=== PATIENT | female | born 1990 | race Hispanic/Latino ===

== ENCOUNTER 2016-07-30 16:12 | Emergency (ER) | payer OTHER ==
[~2016-07-30] VITALS: Ht 167.6 cm; Wt 90.7 kg
--- NOTE | 2016-07-30 16:23 | ED PSYCHIATRIC COMPLAINT ---
History of Present Illness General Chief Complaint: ETOH/Drug Related Complaint Stated Complaint: BIBA ?OVERDOSE Source: patient, EMS Exam Limitations: no limitations Vital Signs & Intake/Output Vital Signs & Intake/Output Vital Signs Date Time Temp Pulse Resp B/P Pulse O2 O2 Flow FiO2 Ox Delivery Rate 07/30 1923 97.8 95 18 115/70 96 Room Air 07/30 1621 96 07/30 1619 96.5 84 16 133/87 97 Room Air ED Intake and Output 07/31 0000 07/30 1200 Intake Total 0 Output Total Balance 0 Intake, Oral 0 Patient 200 lb Weight Allergies Coded Allergies: walnut (ANAPHYLAXIS 07/30/16) Reconcile Medications Esomeprazole (Nexium) 40 MG CAPSULE. 1 CAP PO DAILY GI (Reported) Triage Note: PT BIBA FROM HOME AFTER BEING UNRESPONSIVE. PT STATES SHE SNORTED COCAIN THAT IS THE LAST THING SHE REMEMBERS. PT WAS GIVEN .2 NARCAN INTRA NASAL BY EMS. PT WAS ALSO GIVEN ADDITIONAL .2 IV BY MEDIC. PT STATES SHE DOES NOT USE HEROIN. PT STATES SHE SMOKE POT AND ONCE IN A WHILE SNORTS COCAINE. PT WOKE ONCE NARCAN WAS GIVEN Triage Nurses Notes Reviewed? yes Onset: Abrupt Duration: better Timing: single episode today Severity: severe Severity Numbers: 10 : No Patient currently breastfeeds: No HPI: Patient is a 25-year-old female with a past medical history of GERD who presents emergency room brought in by ambulance for concerns of opiate overdose, it was noted to be in by EMS that they received a call for a unresponsive 25-year-old female in which on arrival patient was noted to be unresponsive in which she was given 2 nasal Narcan spray with minimal response in which then she was given 2 mg IV of Narcan in which she completely became arousable and was alert and oriented. Patient does state that she was told by her girlfriend that she was using cocaine only. Patient does state that she woke up in her normal state health in one hour prior to arrival she began using this substance. Patient denies ever having used heroin in the past. Patient does smoke marijuana on occasion. Patient complains of chest wall pain and which EMS does state that sternal rub was performed Patient currently denies any fever chills headache shortness breath nausea vomiting. Patient denies any suicidal or homicidal ideation. Denies any alcohol use today. Nursing staff does note to me that patient was asking her where her gun was (KIMBERLY ASH) Past History Travel History Traveled to [place] past 21 day No Medical History Any Pertinent Medical History? see below for history Gastrointestinal: GERD Surgical History Surgical History: non-contributory Psychosocial History What is your primary language Welsh Tobacco Use: Current Not Daily Daily Tobacco Use Amount/Type: =< 4 Cigarettes daily ETOH Use: occasional use Illicit Drug Use: cocaine, marijuana Family History Hx Contributory? No (KIMBERLY ASH) Review of Systems Review of Systems Constitutional: Reports: no symptoms. EENTM: Reports: no symptoms. Respiratory: Reports: see HPI. Denies: cough, short of breath. Cardiovascular: Reports: see HPI, chest pain. GI: Reports: no symptoms. Genitourinary: Reports: no symptoms. Musculoskeletal: Reports: no symptoms. Skin: Reports: no symptoms. Neurological/Psychological: Reports: no symptoms. Hematologic/Endocrine: Reports: no symptoms. Immunologic/Allergic: Reports: no symptoms. All Other Systems: Reviewed and Negative (KIMBERLY ASH) Physical Exam Physical Exam General Appearance: no apparent distress, alert, comfortable Neurological/Psychiatric: no motor/sensory deficits, awake, normal mood/affect, calm Appearance/Memory/Insight: appropriate appearance, appropriate insight, denies illness Behavoir/Eye Contact/Speech: cooperative, normal speech, good eye contact Thoughts/Hallucinations: no apparent hallucination Comments: Well-developed well-nourished person in no acute distress HEENT: Normal EENT exam, extraocular motion intact, no nystagmus. Pupils equally round and reactive to light and accommodation. Nose is atraumatic. External auditory canal and Tympanic membranes clear. Pharynx normal. No swelling or edema. Neck: Supple, no lymphadenopathy, normal range of motion without pain or tenderness Back: Nontender, no CVA tenderness. Cardiovascular: Regular rate and rhythms no murmurs rubs or gallops, normal JVP Respiratory: Chest wall tenderness substernal normal inspection. No respiratory distress.breath sounds clear to auscultation bilaterally Abdomen: Soft, nontender nondistended, no appreciable organomegaly. Normal bowel sounds. No ascites Extremity: No edema, no calf tenderness to palpation, normal and equal pulses. Neuro: Alert oriented x3, motor sensory normal, cranial nerves II through XII grossly intact. Skin: No appreciable rash on exposed skin, skin is warm and dry. Psych: Mood and affect is normal, memory and judgment is normal. SAD PERSONS Done? patient not suicidal (DEANA ROD,KIMBERLY) Progress Differential Diagnosis: drug intoxication, drug overdose, drug withdrawal, electrolyte abnormality, encephalitis, hypoglycemia, hypothyroidism, IC hem/mass /tumor, meningitis Plan of Care: Orders Procedure Date/time Status Telemetry/Security Flex Officer 07/31 1623 Active URINE 07/31 1623 Complete URINE DRUG SCREEN FOR ER ONLY 07/31 1623 Complete URINALYSIS 07/31 1623 Complete ACETOMINOPHEN 07/31 1623 Complete TROPONIN LEVEL 07/31 1623 Complete SALICYLATE 07/31 1623 Complete HUMAN BETA HCG SCREEN 07/31 1623 Complete ETHANOL 07/31 1623 Complete COMPREHENSIVE METABOLIC PANEL 07/31 1623 Complete CBC WITHOUT DIFFERENTIAL 07/31 1623 Complete EKG 07/31 1623 Active Laboratory Tests 07/30/16 1828: Urine Opiates Screen < 100.00, Methadone Screen < 40, Barbiturate Screen < 60, Ur Phencyclidine Scrn < 6.00, Amphetamines Screen < 100, U Benzodiazepines Scrn < 85, Urine Cocaine Screen > 1000 H, Urine Cannabis Screen 71.60 H, Urinalysis LIGHT H, Urine Color YEL, Urine Clarity CLEAR, Urine pH 6.0, Ur Specific [place] >= 1.030, Urine Protein 30 H, Urine Ketones NEG, Urine Nitrite NEG, Urine Bilirubin NEG, Urine Urobilinogen 0.2, Ur Leukocyte Esterase NEG, Ur Microscopic SEDIMENT EXAMINED, Urine RBC RARE, Ur Epithelial Cells FEW, Urine Bacteria MOD H, Hyaline Casts 1-3 H, Urine Mucus FEW, Urine Hemoglobin TRACE- INTACT, Urine Glucose NEG, Urine Test NEGATIVE 07/30/16 1655: Anion Gap 14, Estimated GFR > 60, BUN/Creatinine Ratio 11.4, Glucose 153 H, Calcium 9.0, Total Bilirubin 0.5, AST 52 H, ALT 84 H, Alkaline Phosphatase 70, Troponin I < 0.01, Total Protein 8.1, Albumin 4.1, Globulin 4.0, Albumin/ Globulin Ratio 1.0 L, Total Beta HCG NEGATIVE, CBC w Diff NO MAN DIFF REQ, RBC 4.47, MCV 86.7, MCH 28.8, RDW 13.1, MPV 9.1, Gran % 82.6 H, Lymphocytes % 12.7 L, Monocytes % 4.0, Eosinophils % 0.4, Basophils % 0.3, Absolute Granulocytes 15.0 H, Absolute Lymphocytes 2.3, Absolute Monocytes 0.7 H, Absolute Eosinophils 0.1, Absolute Basophils 0.1, PUBS MCHC 33.2, Salicylates < 1.0, Acetaminophen < 10.0 L, Serum Alcohol < 10.0 07/30/2016 6:38:25 PM patient initially on examination had mild nausea and one episode of nonbloody emesis. Patient was given Zofran and had complete resolution of nausea. Patient was reevaluated on multiple times and noted to be in no apparent distress alarm security or surveillance monitor noted to be 85 bpm oxygen saturation 97% room air It was noted to me by nursing staff that patient was asking her where her handgun was in which she then notified police and was please described to me that the handgun was found that patient's private residence and patient's license to possess a handgun was suspended due to suspicion of intoxication while having a license for a firearm Due to history of present illness and patient having bursal of unresponsiveness with Narcan that their suspicion of opiate use however patient's urine drug screen of opiates was negative patient was made aware of cocaine and marijuana and was strongly advised to not participate and polysubstance abuse in the future. Patient has been evaluated on multiple occasions to be alert and oriented no hypoxia noted and patient will receive a ride home from a friend. Patient declined detox referral Discussed disposition and plan with Dr. Landon who agrees (KIMBERLY ASH) Initial ED EKG: normal intervals, normal p-waves, normal QRS complex, SINUS RHYTHM 85 BPM (KIMBERLY ASH) Departure Departure Disposition: HOME OR SELF CARE Condition: Stable Clinical Impression Primary Impression: Polysubstance abuse Additional Instructions: As discussed please refrain from using illicit drugs in the future. If symptoms worsen return to emergency room. Follow-up with YOUR primary care doctor as directed Departure Forms: Customer Survey General Discharge Information (KIMBERLY ASH) PA/SOLID STATE TESTER Co-Sign Statement Statement: ED Attending supervision documentation- [] I saw and evaluated the patient. I have also reviewed all the pertinent lab results and diagnostic results. I agree with the findings and the plan of care as documented in the PA's/SOLID STATE TESTER's documentation. [x] I have reviewed the ED Record and agree with the PA's/SOLID STATE TESTER's documentation. [] Additions or exceptions (if any) to the PAs/SOLID STATE TESTER's note and plan are summarized below: [] (JEAN ZAMBRANO,MOSHE Fulton)
[2016-07-30 17:04] LABS: ABSOLUTE BASOPHIL COUNT 0.1 /CUMM (0.0-0.2); ABSOLUTE EOSINOPHIL COUNT 0.1 /CUMM (0.0-0.7); ABSOLUTE LYMPH COUNT 2.3 /CUMM (1.2-3.4); ABSOLUTE MONOCYTE COUNT 0.7 /CUMM (0.10-0.60); BASOPHIL % 0.3 % (0.0-2.0); EOSINOPHIL % 0.4 % (0-5); GRANULOCYTE % 82.6 % (42.2-75.2); HEMATOCRIT 38.8 % (37-47); MEAN CORPUSCULAR HGB 28.8 PG (27.0-31.0); MEAN CORPUSCULAR HGB CONC 33.2 G/DL (33.0-37.0); MEAN CORPUSCULAR VOLUME 86.7 FL (81.0-99.0); MEAN PLATELET VOLUME 9.1 FL (7.4-10.4); PLATELET COUNT 373 /CUMM (130-400); RBC DISTRIBUTION WIDTH 13.1 % (11.5-14.5); RED BLOOD CELL CT 4.47 /CUMM (4.20-5.40)
[2016-07-30 17:45] LABS: WHITE BLOOD CELL COUNT 18.2 /CUMM (4.8-10.8)
[2016-07-30] MEDS ORDERED: NEXIUM40 M1 PO (17:55)
[2016-07-30 19:23] VITALS: BP 115/70
== END 2016-07-30 20:59 ==
LOC: ERH 16:12
PROVIDERS: Physician Assistant
DX: F14.10 Cocaine abuse, uncomplicated (principal); F12.10 Cannabis abuse, uncomplicated; R07.89 Other chest pain
CPT/HCPCS: 80307; 81001; 81025; 93005; 93010; 96374; G0480; J2405